=== PATIENT | female | born 1990 | race Caucasian/White ===

== ENCOUNTER 2018-05-08 19:00 | Emergency (ER) | payer OTHER ==
[~2018-05-08] VITALS: Ht 160 cm; Wt 70.3 kg
[2018-05-08 19:55] LABS: HEMATOCRIT 35.1 % (37.0-47.0); HEMOGLOBIN 12.4 gm/dL (12.0-15.0); MCH 34.4 pg (26.0-34.0); MCHC 35.2 g/dL (28.0-37.0); MCV 97.6 fL (80.0-100.0); PLATELET COUNT 211 thou/uL (150-400); WBC 16.8 thou/uL (4.0-11.0)
[2018-05-08 20:04] LABS: CALCIUM 9.2 mg/dL (8.5-10.1); CREATININE 0.9 mg/dL (0.6-1.0); POTASSIUM 3.6 mmol/L (3.5-5.1)
[2018-05-08 20:10] LABS: ALBUMIN 3.4 g/dL (3.4-5.0); TOTAL BILIRUBIN 0.7 mg/dL (<0.1-1.0); TOTAL PROTEIN 7.6 g/dL (6.4-8.2)
[2018-05-08 20:28] LABS: ABSOLUTE NEUTROPHILS 14.6 thou/uL (1.4-8.2)
[2018-05-08 20:30] LABS: ANISOCYTOSIS 1+; PLATELET ESTIMATE NORMAL
[2018-05-08 20:33] LABS: URINE BILIRUBIN NEGATIVE (Negative); URINE BLOOD TRACE (Negative); URINE CLARITY CLEAR; URINE COLOR YELLOW; URINE GLUCOSE-RANDOM* NEGATIVE (Negative); URINE KETONES 2+ (Negative); URINE LEUKOCYTES-REFLEX 1+ (Negative); URINE NITRITE-REFLEX POSITIVE (Negative); URINE PROTEIN (DIPSTICK) 1+ (Negative); URINE UROBILINOGEN 0.2 E.U./dl (0.2-1.0)
[2018-05-08 20:47] LABS: BACTERIA-REFLEX >30 Many /HPF (None Seen); CASTS None Seen /LPF (None Seen); CRYSTALS None Seen /LPF (None Seen); SQUAMOUS 0-3 Few /LPF (0-3); URINE RBC 0-2 Rare /HPF (0-2); URINE WBC-REFLEX >25 Many /HPF (0-5)
[2018-05-08] MEDS ORDERED: CEFDINIR300 MG PO (21:18)
[2018-05-08] MEDS ORDERED: NAPROSYN500 MG PO (21:18)
[2018-05-08] MEDS ORDERED: ONDANSETRON HCL4 M2 PO (21:18)
[2018-05-08 21:31] VITALS: BP 129/81
== END 2018-05-08 21:32 | disposition home or self-care (01) ==
LOC: ER 19:00
PROVIDERS: Emergency Medicine
DX: N12 Tubulo-interstitial nephritis, not specified as acute or chronic (principal); F17.210 Nicotine dependence, cigarettes, uncomplicated; Z98.890 Other specified postprocedural states